=== PATIENT | male | born 1970 | race African-American/Black ===

== ENCOUNTER 2019-04-17 08:09 | Emergency (ER) | payer SELFPAY ==
[~2019-04-17] VITALS: Ht 165.1 cm; Wt 84.4 kg
[2019-04-17 08:15] VITALS: BP 138/94
--- NOTE | 2019-04-17 08:15 | NUR ---
Patient ambulated to bed 3. RN evaluating patient at bedside.
--- NOTE | 2019-04-17 08:25 | NUR ---
PT TO ED WITH C/O N/V/D X THIS MORNING. REPORTING 5 EPSIODES OF EMESIS WITH 2 EPISODES OF DIARRHEA. ABD IS FLAT, NON TENDER, NO DISTENTION NOTED. BOWEL SOUNDS ACTIVE TO ALL QUADRANTS. NO OBVIOUS DISTRESS NOTED. PT IN BED FOR MD CARLSON.
[2019-04-17] MEDS ORDERED: ACETAMINOPHEN 325 MG TAB PO ONE (08:45)
[2019-04-17] MEDS ORDERED: DIPHENOXYLATE /ATROPINE 2.5 MG TAB PO ONE (08:45)
[2019-04-17] MEDS ORDERED: ONDANSETRON 4 MG ODT PO ONE (08:45)
[2019-04-17 09:39] VITALS: BP 137/86
--- NOTE | 2019-04-17 09:39 | NUR ---
Patient discharged with v/s stable. Written and verbal after care instructions given and explained. Patient alert, oriented and verbalized understanding of instructions. Ambulatory with steady gait. All questions addressed prior to discharge. ID band removed. Patient advised to follow up with PMD. Rx of LOMOTIL, ZOFRAN given. Patient educated on indication of medication including possible reaction and side effects. Opportunity to ask questions provided and answered.
== END 2019-04-17 09:39 | disposition home or self-care (01) ==
LOC: MED 08:09
DX: R11.2 Nausea with vomiting, unspecified (principal); R19.7 Diarrhea, unspecified; R03.0 Elevated blood-pressure reading, without diagnosis of hypertension; J45.909 Unspecified asthma, uncomplicated; F12.90 Cannabis use, unspecified, uncomplicated
CPT/HCPCS: 99284; Q0162